=== PATIENT | female | born 1975 | race Caucasian/White ===

== ENCOUNTER → 2016-09-04 | Outpatient (CLI) | payer BC ==
--- OUTSIDE RECORDS SUMMARY | 2016-09-04 15:42 | XMS REPORT | Continuity of Care Document ---
[facility] Address Unknown Phone Unavailable Care Team Providers Care Certified Medical Assistant Name Role Phone Nivia Bowden PCP [phone] Source Comments Some departments are not documenting in the electronic medical record. If you do not see the information that you expected, contact Release of Information in the Health Information Management department at [phone] for further assistance in locating additional records[facility] Active Allergies and Adverse Reactions No Known Allergies Current Medications Prescription Sig. Disp. Refills Start End Date Status Date ETONOGESTREL/ETHINYL Insert or Apply to Active ESTRADIOL (NU[facility]ING [facility]) vaginal area. HYDROcodone/acetaminophen Take 1-2 Tabs by mouth 30 Tab 0 04/06/20 Active (NORCO; VICODIN) 5-325 mg every 4-6 hours as needed 14 tablet for Pain. Max 8 tabs/day MULTIVITAMIN PO Take by mouth. 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
[2016-09-04 16:19] LABS: ALANINE AMINOTRANSFERASE 12 U/L (0-55); ALBUMIN 4.2 G/DL (3.2-4.5); ANION GAP 10 MMOL/L (5-14); ASPARTATE AMINO TRANSFERASE 11 U/L (5-34); BILIRUBIN,TOTAL 0.4 MG/DL (0.1-1.0); BLOOD UREA NITROGEN 15 MG/DL (7-18); BUN/CREATININE RATIO 21; CALCIUM 9.3 MG/DL (8.5-10.1); CARBON DIOXIDE 23 MMOL/L (21-32); CHLORIDE 105 MMOL/L (98-107); CREATININE SERUM 0.71 MG/DL (0.60-1.30); GFR ESTIMATED > 60; GLUCOSE 86 MG/DL (70-105); POTASSIUM 3.7 MMOL/L (3.6-5.0); SODIUM 138 MMOL/L (135-145); TOTAL PROTEIN 7.4 G/DL (6.4-8.2)
[2016-09-04 16:21] LABS: BASOPHILS % (AUTO) 0 % (0-10); EOSINOPHILS # (AUTO) 0.3 10^3/uL (0.0-0.3); EOSINOPHILS % (AUTO) 3 % (0-10); LYMPHOCYTES # (AUTO) 2.5 X 10^3 (1.0-4.0); LYMPHOCYTES % (AUTO) 21 % (12-44); MEAN CORPUSCULAR HEMOGLOBIN 30 PG (25-34); MEAN CORPUSCULAR HGB CONC 34 G/DL (32-36); MEAN CORPUSCULAR VOLUME 89 FL (80-99); MEAN PLATELET VOLUME 11.3 FL (7.4-10.4); MONOCYTES # (AUTO) 0.8 X 10^3 (0.0-1.0); MONOCYTES % (AUTO) 6 % (0-12); NEUTROPHILS # (AUTO) 8.3 X 10^3 (1.8-7.8); NEUTROPHILS % (AUTO) 70 % (42-75); PLATELET COUNT 267 10^3/uL (130-400); RED BLOOD COUNT 4.84 10^6/uL (4.35-5.85); RED CELL DISTRIBUTION WIDTH 13.5 % (10.0-14.5); WHITE BLOOD COUNT 11.9 10^3/uL (4.3-11.0)
[2016-09-04 18:05] LABS: TROPONIN I < 0.30 NG/ML (<0.30)
== END ==
LOC: CARD 15:39
PROVIDERS: ATTEND Nurse Practitioner Family
DX: R07.9 Chest pain, unspecified (principal); R06.02 Shortness of breath
CPT/HCPCS: 36415; 80053; 84484; 85025; 93005

== ENCOUNTER → 2018-02-10 | Outpatient (CLI) | payer OTHER ==
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
--- NOTE | 2018-02-10 17:13 | Diagnostic Imaging Report ---
INDICATION: Right wrist pain. AP, oblique, and lateral views of the right wrist are obtained. FINDINGS: No fracture or acute bony abnormality is seen. IMPRESSION: Negative right wrist. Dictated by: Dictated on workstation # [id number]
== END ==
LOC: RAD 10:37
PROVIDERS: ATTEND Internal Medicine
DX: M79.641 Pain in right hand (principal); M25.531 Pain in right wrist
CPT/HCPCS: 73110; 73130

== ENCOUNTER → 2020-09-03 | Outpatient (CLI) | payer OTHER, BC ==
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
== END ==
LOC: RAD 14:51
PROVIDERS: ATTEND Nurse Practitioner Family
DX: M54.12 Radiculopathy, cervical region (principal)
CPT/HCPCS: 72040

== ENCOUNTER 2021-01-16 09:59 | Emergency (ER) | payer BC ==
[~2021-01-16] VITALS: Ht 160 cm; Wt 45.0 kg
[2021-01-16 10:54] LABS: BASOPHILS % (AUTO) 1 % (0-10); EOSINOPHILS % (AUTO) 0 % (0-10); HEMATOCRIT 45 % (35-52); LYMPHOCYTES # (AUTO) 1.2 10^3/uL (1.0-4.0); LYMPHOCYTES % (AUTO) 28 % (12-44); MEAN CORPUSCULAR HEMOGLOBIN 29 pg (25-34); MEAN CORPUSCULAR HGB CONC 33 g/dL (32-36); MEAN CORPUSCULAR VOLUME 88 fL (80-99); MEAN PLATELET VOLUME 11.2 fL (9.0-12.2); MONOCYTES # (AUTO) 0.4 10^3/uL (0.0-1.0); MONOCYTES % (AUTO) 10 % (0-12); NEUTROPHILS # (AUTO) 2.5 10^3/uL (1.8-7.8); NEUTROPHILS % (AUTO) 61 % (42-75); PLATELET COUNT 139 10^3/uL (130-400); WHITE BLOOD COUNT 4.1 10^3/uL (4.3-11.0)
[2021-01-16] MEDS ORDERED: ONDANSETRON 4 MG/2 ML (SDV) Z0FRAN IVP ONE (11:00)
[2021-01-16] MEDS ORDERED: LACTATED RINGERS 1,000 ML IV ONE (11:00)
[2021-01-16 11:09] LABS: ALBUMIN 4.4 GM/DL (3.2-4.5); POTASSIUM 3.5 MMOL/L (3.6-5.0)
[2021-01-16 11:10] LABS: CALCIUM 9.1 MG/DL (8.5-10.1)
[2021-01-16 11:12] LABS: TOTAL PROTEIN 8.4 GM/DL (6.4-8.2)
[2021-01-16 11:13] LABS: BILIRUBIN,TOTAL 0.5 MG/DL (0.1-1.0)
[2021-01-16 11:15] LABS: CREATININE SERUM 0.67 MG/DL (0.60-1.30)
[2021-01-16 11:23] LABS: CLARITY,URINE CLEAR; COLOR,URINE YELLOW; GLUCOSE, URINE (UA) NEGATIVE (NEGATIVE); KETONES,URINE 3+ (NEGATIVE); LEUKOCYTE ESTERASE ,URINE NEGATIVE (NEGATIVE); NITRITE,URINE NEGATIVE (NEGATIVE); PROTEIN,URINE TRACE (NEGATIVE)
[2021-01-16 11:35] LABS: BILIRUBIN,URINE 1+ (NEGATIVE)
[2021-01-16 11:36] LABS: BACTERIA,URINE FEW /HPF
[2021-01-16 12:15] VITALS: BP 93/81
[2021-01-16] MEDS ORDERED: DEXA6TAB6 PO (12:16)
[2021-01-16] MEDS ORDERED: PROM5SYR PO (12:16)
--- NOTE | 2021-01-16 12:16 | ED General ---
General Chief Complaint: Cough/Cold/Flu Symptoms Stated Complaint: COUGH;FEVER;DIARRHEA;DEHYDRATION;CANNOT EAT Nursing Triage Note: Pt ambulatory into ER with complaint of N/V/D, Body Aches, Fatigue, Headache, Loss of Smell x6 days. Pt states that she just feels exhausted and hasn't ate or drank much since last week. Source of Information: Patient Exam Limitations: No Limitations History of Present Illness Date Seen by Provider: Jan 16, 2021 Time Seen by Provider: 12:12 Initial Comments To ER with nausea vomiting diarrhea body aches headache fatigue and loss of smell for 6 days. Unvaccinated against Covid. She does not feel short of breath Timing/Duration: 6-7 Days Severity: Moderate Associated Systoms: Nausea/Vomiting Allergies and Home Medications Allergies Coded Allergies: No Allergy Information Available (Unverified , 09/21/14) Patient Home Medication List Home Medication List Reviewed: Yes Review of Systems Review of Systems Constitutional: see HPI EENTM: see HPI Respiratory: see HPI, cough Cardiovascular: no symptoms reported Genitourinary: no symptoms reported Musculoskeletal: no symptoms reported Skin: no symptoms reported Psychiatric/Neurological: No Symptoms Reported Hematologic/Lymphatic: No Symptoms Reported Past Tkbwwbc-Mlaqen-Qyvvul Hx Patient Social History Tobacco Use?: No Use of E-Cig and/or Vaping dev: No Substance use?: No Alcohol Use?: No Pt feels they are or have been: No Immunizations Up To Date Influenza Vaccine Up-to-Date: No; Not Current Physical Exam Vital Signs Vital Signs - First Documented 01/16/21 11:13 Temp 37.2 Pulse 88 Resp 16 B/P (MAP) 109/84 (92) Pulse Ox 99 O2 Delivery Room Air Capillary Refill : Less Than 3 Seconds Height, Weight, BMI Height: '" Weight: lbs. oz. kg; 17.00 BMI Method: General Appearance: No Apparent Distress, WD/WN, Thin, Other (98% SPO2 on room air without tachycardia or hypotension) HEENT: PERRL/EOMI, Normal ENT Inspection, Other (Serous otitis bilaterally) Neck: Full Range of Motion, Normal Inspection Respiratory: No Accessory Muscle Use, No Respiratory Distress Cardiovascular: Regular Rate, Rhythm, Normal Peripheral Pulses Gastrointestinal: Normal Bowel Sounds, Non Tender Extremity: Normal Capillary Refill, Normal Inspection Neurologic/Psychiatric: Alert, Oriented x3 Skin: Normal Color, Warm/Dry Progress/Results/Core Measures Suspected Sepsis SIRS Temperature: Pulse: 88 Respiratory Rate: 16 Laboratory Tests 01/16/21 10:25: White Blood Count 4.1L Blood Pressure 109 /84 Mean: 92 Laboratory Tests 01/16/21 10:25: Creatinine 0.67, Platelet Count 139, Total Bilirubin 0.5 Results/Orders Lab Results Laboratory Tests Test 01/16/21 10:25 01/16/21 10:50 01/16/21 11:13 Range/Units White Blood Count 4.1 L 4.3-11.0 10^3/uL Red Blood Count 5.12 H 3.80-5.11 10^6/uL Hemoglobin 15.0 11.5-16.0 g/dL Hematocrit 45 35-52 % Mean Corpuscular Volume 88 80-99 fL Mean Corpuscular Hemoglobin 29 25-34 pg Mean Corpuscular Hemoglobin Concent 33 32-36 g/dL Red Cell Distribution Width 12.1 10.0-14.5 % Platelet Count 139 130-400 10^3/uL Mean Platelet Volume 11.2 9.0-12.2 fL Immature Granulocyte % (Auto) 0 % Neutrophils (%) (Auto) 61 42-75 % Lymphocytes (%) (Auto) 28 12-44 % Monocytes (%) (Auto) 10 0-12 % Eosinophils (%) (Auto) 0 0-10 % Basophils (%) (Auto) 1 0-10 % Neutrophils # (Auto) 2.5 1.8-7.8 10^3/uL Lymphocytes # (Auto) 1.2 1.0-4.0 10^3/uL Monocytes # (Auto) 0.4 0.0-1.0 10^3/uL Eosinophils # (Auto) 0.0 0.0-0.3 10^3/uL Basophils # (Auto) 0.0 0.0-0.1 10^3/uL Immature Granulocyte # (Auto) 0.0 0.0-0.1 10^3/uL Sodium Level 140 135-145 MMOL/L Potassium Level 3.5 L 3.6-5.0 MMOL/L Chloride Level 100 98-107 MMOL/L Carbon Dioxide Level 21 21-32 MMOL/L Anion Gap 19 H 5-14 MMOL/L Blood Urea Nitrogen 9 7-18 MG/DL Creatinine 0.67 0.60-1.30 MG/DL Estimat Glomerular Filtration Rate 96 BUN/Creatinine Ratio 13 Glucose Level 75 70-105 MG/DL Calcium Level 9.1 8.5-10.1 MG/DL Corrected Calcium 8.8 8.5-10.1 MG/DL Total Bilirubin 0.5 0.1-1.0 MG/DL Aspartate Amino Transf (AST/SGOT) 29 5-34 U/L Alanine Aminotransferase (ALT/SGPT) 17 0-55 U/L Alkaline Phosphatase 42 40-136 U/L C-Reactive Protein High Sensitivity 0.59 H 0.00-0.50 MG/DL Total Protein 8.4 H 6.4-8.2 GM/DL Albumin 4.4 3.2-4.5 GM/DL Influenza Type A (RT-PCR) Not Detected Not Detecte Influenza Type B (RT-PCR) Not Detected Not Detecte SARS-CoV-2 RNA (RT-PCR) Detected H Not Detecte Urine Color YELLOW Urine Clarity CLEAR Urine pH 6.0 5-9 Urine Specific [place] >=1.030 1.016-1.022 Urine Protein TRACE H NEGATIVE Urine Glucose (UA) NEGATIVE NEGATIVE Urine Ketones 3+ H NEGATIVE Urine Nitrite NEGATIVE NEGATIVE Urine Bilirubin 1+ H NEGATIVE Urine Urobilinogen 0.2 < = 1.0 MG/DL Urine Leukocyte Esterase NEGATIVE NEGATIVE Urine RBC (Auto) 1+ H NEGATIVE Urine RBC 2-5 H /HPF Urine WBC 2-5 /HPF Urine Squamous Epithelial Cells 5-10 /HPF Urine Crystals NONE /LPF Urine Bacteria FEW H /HPF Urine Casts NONE /LPF Urine Mucus MODERATE H /LPF Urine Culture Indicated NO Medications Given in ED Current Medications Medications Dose Ordered Sig/Clara Route Start Time Stop Time Status Last Admin Dose Admin Lactated Ringer's 1,000 ml @ 0 mls/hr Q0M ONCE IV 01/16/21 11:00 01/16/21 11:01 DC 01/16/21 10:57 1,000 MLS/HR Ondansetron HCl 4 mg ONCE ONCE IVP 01/16/21 11:00 01/16/21 11:01 DC 01/16/21 10:57 4 MG Vital Signs/I&O 01/16/21 01/16/21 11:13 11:13 Temp 37.2 Pulse 88 Resp 16 B/P (MAP) 109/84 (92) Pulse Ox 99 O2 Delivery Room Air Room Air Capillary Refill : Less Than 3 Seconds Blood Pressure Mean: 92 Departure Communication (Admissions) She does not meet criteria for Regeneron Impression Primary Impression: COVID-19 Disposition: 01 HOME, SELF-CARE Condition: Stable Departure-Patient Inst. Decision time for Depature: 12:14 Referrals: [facility] MD (PCP/Family) Primary Care Physician Patient Instructions: COVID-19 (DC) Add. Discharge Instructions: 1. Return to ER for any concerns or shortness of breath. Medication as directed. All discharge instructions reviewed with patient and/or family. Voiced understanding. Scripts Promethazine HCl/Codeine (Prometh-Codein 6.25-10 mg/5 ml) 5 Ml Syrup 5 ML PO Q4H PRN for COUGH, #120 ML Prov: MATEO CHAPMAN APRN 01/16/21 Dexamethasone (Decadron) 6 Mg Tablet 6 MG PO DAILY, #5 TAB Prov: MATEO CHAPMAN APRN 01/16/21 MATEO CHAPMAN APRN Jan 16, 2021 12:16
== END 2021-01-16 12:15 | disposition home or self-care (01) ==
LOC: EDUNIT# 09:59 → ER 10:01
DX: U07.1 COVID-19 (principal)
CPT/HCPCS: 36415; 80053; 81000; 85025; 86141; 87636; 96374

== ENCOUNTER → 2021-01-16 | Outpatient (CLI) | payer OTHER, BC ==
[~2021-01-16] MED LIST: DEXA6TAB6 PO; PROM5SYR PO
== END ==
LOC: LABNPT 08:20
PROVIDERS: ATTEND Internal Medicine
DX: U07.1 COVID-19 (principal)
CPT/HCPCS: 87635

== ENCOUNTER → 2021-09-27 | Outpatient (CLI) | payer BC ==
[~2021-09-27] MED LIST changes: +CATHETER FLUSH 10 ML SYR IV PRN; +IOHEXOL 350 MG/ML 100 ML (OMNIPAQUE 350) VIAL IV ONE; +NS 100 ML (IVPB) BAG IV ONE
--- NOTE | 2021-09-27 17:20 | Diagnostic Imaging Report ---
INDICATION: Abdominal pain and hematuria. TECHNIQUE: Multiple contiguous axial images were obtained through the abdomen and pelvis after administration of intravenous contrast. Auto Exposure Controls were utilized during the CT exam to meet ALARA standards for radiation dose reduction. All CT scans use one or more of the following dose optimizing techniques: automated exposure control, MA and/or KvP adjustment based on patient size and exam type or iterative reconstruction. COMPARISON: Comparison made with 09/21/2014. FINDINGS: Visualized portions of the lung bases are clear except for some mild linear scarring or atelectasis in both bases. There is no pleural fluid or free intraperitoneal air. The liver shows a small low-density lesion in the right lobe posteriorly, measuring about 9 mm. This has not changed compared to the prior study and is likely a hemangioma. Liver is otherwise normal. Gallbladder appears normal. The spleen, adrenals, and pancreas appear unremarkable. There is no retroperitoneal mass or adenopathy. There is no ascites or abnormal fluid collection. Visualized bowel loops are unremarkable. There is an adnexal cyst on the right side measuring 3.4 cm. IMPRESSION: A 3.4 cm right adnexal cyst. Stable small hemangioma in the right lobe of the liver. No other significant abnormality seen. Dictated by: Dictated on workstation # [id number]
== END ==
LOC: RAD 15:38
PROVIDERS: ATTEND Family Medicine
DX: D18.09 Hemangioma of other sites (principal); N83.8 Other noninflammatory disorders of ovary, fallopian tube and broad ligament
CPT/HCPCS: 74177

== ENCOUNTER → 2022-02-22 | Outpatient (CLI) | payer BC ==
[~2022-02-22] MED LIST changes: -CATHETER FLUSH 10 ML SYR IV PRN; -IOHEXOL 350 MG/ML 100 ML (OMNIPAQUE 350) VIAL IV ONE; -NS 100 ML (IVPB) BAG IV ONE
--- NOTE | 2022-02-22 09:32 | Diagnostic Imaging Report ---
INDICATION: Chronic right hand pain 3 views of the right hand show no fracture, dislocation or other acute abnormalities. IMPRESSION: Negative right hand. No change compared to 02/10/2018. Dictated by: Dictated on workstation # [id number]
== END ==
LOC: RAD 08:56
PROVIDERS: ATTEND Internal Medicine
DX: M79.641 Pain in right hand (principal); G89.29 Other chronic pain
CPT/HCPCS: 73130

== ENCOUNTER 2022-07-26 01:05 | Emergency (ER) | payer BC ==
[~2022-07-26] VITALS: Ht 160 cm; Wt 50.0 kg
[2022-07-26] MEDS ORDERED: fentaNYL INJ 100 MCG/2 ML AMP IVP STA ×2 (01:21→02:01)
[2022-07-26] MEDS ORDERED: NS IV 1000 ML 1,000 ML IV STA (01:21)
--- NOTE | 2022-07-26 01:29 | ED Abdominal Pain ---
General Chief Complaint: Abdominal/GI Problems Stated Complaint: ABD PAIN Source of Information: Patient Exam Limitations: No Limitations History of Present Illness Date Seen by Provider: Jul 26, 2022 Time Seen by Provider: 01:15 Initial Comments Here with report of acute onset of right lower quadrant abdominal pain approximately 30 minutes prior to arrival. Patient states it woke her up out of sleep. She is currently being treated for sinus infection and was seen at urgent care yesterday and had negative COVID and influenza testing. She was seen a couple weeks ago for pelvic pain and had CT scan done in [place] and they told her she may have had a ruptured cyst and she had cyst on both ovaries. Does have history of previous bilateral tubal ligation as well as appendectomy. She has never had kidney stones. Other than some occasional pelvic pain she has never had pain like this and this is worse than she is ever had. Does note that she has had some pink-tinged discharge when wiping over the past couple of days. She states that she is not sexually active recently. She did report taking 2 Aleve at onset but that has not stopped her pain yet. Timing/Duration: 1/2 Hour Severity/Quality: Moderate Location: RLQ Radiation: No Radiation Activities at Onset: None Associated Symptoms: No Back Pain, No Fever/Chills; Nausea/Vomiting; No Shortness of Air, No Weakness Allergies and Home Medications Allergies Coded Allergies: codeine (Verified Allergy, Unknown, Vomiting, 07/26/22) Patient Home Medication List Home Medication List Reviewed: Yes Dexamethasone (Decadron) 6 Mg Tablet, 6 MG PO DAILY Prescribed by: MATEO CHAPMAN on 01/16/21 1216 Promethazine HCl/Codeine (Prometh-Codein 6.25-10 mg/5 ml) 5 Ml Syrup, 5 ML PO Q4H PRN for COUGH Prescribed by: MATEO CHAPMAN on 01/16/21 1216 Review of Systems Review of Systems Constitutional: No fever EENTM: Nose Congestion; No Throat Pain Respiratory: Denies Cough, Denies Shortness of Air Gastrointestinal: Abdominal Pain, Diarrhea, Nausea; Denies Vomiting Musculoskeletal: no symptoms reported Skin: no symptoms reported Past Xvcxthg-Fuzfug-Axjuvh Hx Patient Social History Tobacco Use?: No Alcohol Use?: Yes Past Medical History Surgeries: Yes Appendectomy, Tonsillectomy, Tubal Ligation Cardiac: No Neurological: No Family Medical History No Pertinent Family Hx Physical Exam Vital Signs Vital Signs - First Documented 07/26/22 01:14 Temp 36.3 Pulse 99 Resp 22 B/P (MAP) 134/97 (109) Pulse Ox 100 O2 Delivery Room Air Capillary Refill : Height/Weight/BMI Height: '" Weight: lbs. oz. kg; 17.00 BMI Method: General Appearance: WD/WN, mild distress Neck: full range of motion, supple Respiratory: lungs clear, normal breath sounds Cardiovascular: no murmur, tachycardia Gastrointestinal: normal bowel sounds, soft; No guarding, No rebound; tenderness (Right lower quadrant) Back: normal inspection, no CVA tenderness, no vertebral tenderness Neurologic/Psychiatric: alert, oriented x 3 Skin: normal color, warm/dry Progress/Results/Core Measures Results/Orders Lab Results Laboratory Tests Test 07/26/22 01:25 07/26/22 02:00 Range/Units White Blood Count 12.9 H 4.3-11.0 10^3/uL Red Blood Count 4.54 3.80-5.11 10^6/uL Hemoglobin 13.5 11.5-16.0 g/dL Hematocrit 40 35-52 % Mean Corpuscular Volume 89 80-99 fL Mean Corpuscular Hemoglobin 30 25-34 pg Mean Corpuscular Hemoglobin Concent 33 32-36 g/dL Red Cell Distribution Width 13.1 10.0-14.5 % Platelet Count 311 130-400 10^3/uL Mean Platelet Volume 10.8 9.0-12.2 fL Immature Granulocyte % (Auto) 0 % Neutrophils (%) (Auto) 84 H 42-75 % Lymphocytes (%) (Auto) 13 12-44 % Monocytes (%) (Auto) 3 0-12 % Eosinophils (%) (Auto) 0 0-10 % Basophils (%) (Auto) 0 0-10 % Neutrophils # (Auto) 10.8 H 1.8-7.8 10^3/uL Lymphocytes # (Auto) 1.6 1.0-4.0 10^3/uL Monocytes # (Auto) 0.4 0.0-1.0 10^3/uL Eosinophils # (Auto) 0.0 0.0-0.3 10^3/uL Basophils # (Auto) 0.0 0.0-0.1 10^3/uL Immature Granulocyte # (Auto) 0.0 0.0-0.1 10^3/uL Sodium Level 136 135-145 MMOL/L Potassium Level 3.8 3.6-5.0 MMOL/L Chloride Level 105 98-107 MMOL/L Carbon Dioxide Level 20 L 21-32 MMOL/L Anion Gap 11 5-14 MMOL/L Blood Urea Nitrogen 7 7-18 MG/DL Creatinine 0.71 0.60-1.30 MG/DL Estimat Glomerular Filtration Rate 106 BUN/Creatinine Ratio 10 Glucose Level 150 H 70-105 MG/DL Calcium Level 9.4 8.5-10.1 MG/DL Corrected Calcium 9.3 8.5-10.1 MG/DL Total Bilirubin 0.3 0.1-1.0 MG/DL Aspartate Amino Transf (AST/SGOT) 15 5-34 U/L Alanine Aminotransferase (ALT/SGPT) 14 0-55 U/L Alkaline Phosphatase 44 40-136 U/L C-Reactive Protein High Sensitivity 0.21 0.00-0.50 MG/DL Total Protein 7.6 6.4-8.2 GM/DL Albumin 4.1 3.2-4.5 GM/DL Urine Color YELLOW Urine Clarity CLEAR Urine pH 8.5 5-9 Urine Specific [place] 1.020 1.016-1.022 Urine Protein NEGATIVE NEGATIVE Urine Glucose (UA) NEGATIVE NEGATIVE Urine Ketones 2+ H NEGATIVE Urine Nitrite NEGATIVE NEGATIVE Urine Bilirubin NEGATIVE NEGATIVE Urine Urobilinogen 0.2 < = 1.0 MG/DL Urine Leukocyte Esterase NEGATIVE NEGATIVE Urine RBC (Auto) NEGATIVE NEGATIVE Urine RBC NONE /HPF Urine WBC NONE /HPF Urine Squamous Epithelial Cells 2-5 /HPF Urine Crystals NONE /LPF Urine Bacteria TRACE /HPF Urine Casts NONE /LPF Urine Mucus NEGATIVE /LPF Urine Culture Indicated NO My Orders Orders - LILI UMAÑA MD Cbc With Automated Diff (07/26/22 01:21) Comprehensive Metabolic Panel (07/26/22 01:21) Hs C Reactive Protein (07/26/22 01:21) Ua Culture If Indicated (07/26/22 01:21) Ondansetron Injection (Zofran Injectio (07/26/22 01:30) Ns Iv 1000 Ml (Sodium Chloride 0.9%) (07/26/22 01:21) Ed Iv/Invasive Line Start (07/26/22 01:21) Fentanyl Inj (Sublimaze Injection) (07/26/22 01:21) Fentanyl Inj (Sublimaze Injection) (07/26/22 02:01) Ct Abdomen/Pelvis W (07/26/22 02:25) Iohexol Injection (Omnipaque 350 Mg/Ml 1 (07/26/22 03:15) Sodium Chloride Flush (Catheter Flush Sy (07/26/22 03:15) Ns (Ivpb) (Sodium Chloride 0.9% Ivpb Bag (07/26/22 03:15) Medications Given in ED Current Medications Medications Dose Ordered Sig/Clara Route Start Time Stop Time Status Last Admin Dose Admin Iohexol 100 ml ONCE ONCE IV 07/26/22 03:15 07/26/22 03:16 DC 07/26/22 03:06 60 ML Ondansetron HCl 4 mg ONCE ONCE IVP 07/26/22 01:30 07/26/22 01:31 DC 07/26/22 01:35 4 MG Sodium Chloride 10 ml NEEDED PRN IV 07/26/22 03:15 07/26/22 03:07 10 ML Sodium Chloride 100 ml ONCE ONCE IV 07/26/22 03:15 07/26/22 03:16 DC 07/26/22 03:06 80 ML Vital Signs/I&O 07/26/22 01:14 Temp 36.3 Pulse 99 Resp 22 B/P (MAP) 134/97 (109) Pulse Ox 100 O2 Delivery Room Air Progress Progress Note : Progress Note Seen and evaluated. Patient has had previous appendectomy as well as tubal ligation. Given the severity of her pain, we will initiate IV and check CBC, CMP, UA and CRP. Fentanyl 50 mcg IV and normal saline 1 L bolus ordered. Anticipate CT abdomen pelvis but will await UA to determine contrast as kidney stone would be on the differential. Monitor patient. Differential includes ovarian cyst, kidney or ureteral stone, UTI, bowel inflammation, other intra-abdominal pathology 0200: I have repeated dose of fentanyl. Patient was finally able to give urine and we are awaiting those results. 0225: CBC shows white count of 12.9 with hemoglobin of 13.5 with slight neutrophilia. Chemistry shows normal electrolytes with slightly elevated glucose at 150. Serum creatinine normal. LFTs are normal. CRP is also noted to be normal. UA did show 2+ ketones but otherwise not significant for urinary tract infection and no significant amount of blood. I have ordered CT abdomen pelvis with contrast given her persistence of pain. Kidney stone less likely due to no blood in the urine. Monitor patient. 0310: CT shows bilateral ovarian cyst on my interpretation without significant amount of free fluid in the abdomen. See obvious signs of significant bowel obstruction on my interpretation. Pending radiology read. 0330: Reviewed stat rad report. See below. Discussed with patient. Her pain is essentially resolved right now she feels comfortable going home. In further discussion with her, she is an current evaluation with her scallop binder after the ER visit 2 weeks ago at the outside hospital. They did do ultrasound of the ovaries at that time and have repeat ultrasound scheduled in 1 month. She will keep that appointment and call her scallop binder again. I did discuss with her about follow-up with general surgery for colonoscopy and she will make that appointment. I will give her a couple of the local physicians for that for information to call and she will call one of the MRI of her choosing. Discharged home with return precautions. Patient verbalized understanding instructions and agreement with plan. Diagnostic Imaging Diagonstic Imaging: CT Plain Films/CT/US/NM/MRI: abdomen, pelvis Comments There are some dilated loops of small bowel containing air and fluid. Some of these demonstrate wall thickening. This may be related to an ileus. Cannot exclude a nonspecific enteritis. There are possible bilateral adnexal cyst. There is some free fluid noted in the pelvis. 1 cm lesion is again noted in the right lobe of the liver which previously was felt to represent a hemangioma. Per stat rad report. Reviewed: Reviewed [place] Study, Reviewed by Me Departure Impression Primary Impression: Abdominal pain Qualified Codes: R10.30 - Lower abdominal pain, unspecified Disposition: HOME, SELF-CARE Condition: Improved Departure-Patient Inst. Decision time for Depature: 03:35 Referrals: BRANDON DELEON BRETT D DO TAYLOR, JOHN D MD (PCP/Family) Primary Care Physician Add. Discharge Instructions: All discharge instructions reviewed with patient and/or family. Voiced understanding. Follow-up with one of the surgeons listed or of your choosing for further evaluation including possible colonoscopy/upper endoscopy (scope) as needed. Continue home medications as previously prescribed. You may take Tylenol/acetaminophen 650 mg every 6-8 hours as needed for pain. You may take Aleve 1 or 2 tablets twice daily as needed for pain. Clear a light diet for the next 1 to 2 days and then advance as tolerated. You should initiate [id number] probiotics while you are taking the Augmentin as this will help reduce GI distress. Return for worse pain, fever, vomiting, weakness, breathing problems or other concerns as needed. LILI UMAÑA MD Jul 26, 2022 01:29
[2022-07-26] MEDS ORDERED: ONDANSETRON 4 MG/2 ML (SDV) Z0FRAN IVP ONE (01:30)
[2022-07-26 01:31] LABS: BASOPHILS % (AUTO) 0 % (0-10); EOSINOPHILS % (AUTO) 0 % (0-10); HEMATOCRIT 40 % (35-52); HEMOGLOBIN 13.5 g/dL (11.5-16.0); LYMPHOCYTES # (AUTO) 1.6 10^3/uL (1.0-4.0); LYMPHOCYTES % (AUTO) 13 % (12-44); MEAN CORPUSCULAR HEMOGLOBIN 30 pg (25-34); MEAN CORPUSCULAR HGB CONC 33 g/dL (32-36); MEAN CORPUSCULAR VOLUME 89 fL (80-99); MEAN PLATELET VOLUME 10.8 fL (9.0-12.2); MONOCYTES # (AUTO) 0.4 10^3/uL (0.0-1.0); MONOCYTES % (AUTO) 3 % (0-12); NEUTROPHILS # (AUTO) 10.8 10^3/uL (1.8-7.8); NEUTROPHILS % (AUTO) 84 % (42-75); PLATELET COUNT 311 10^3/uL (130-400); WHITE BLOOD COUNT 12.9 10^3/uL (4.3-11.0)
[2022-07-26 01:59] LABS: ALBUMIN 4.1 GM/DL (3.2-4.5); BILIRUBIN,TOTAL 0.3 MG/DL (0.1-1.0); CALCIUM 9.4 MG/DL (8.5-10.1); CREATININE SERUM 0.71 MG/DL (0.60-1.30); POTASSIUM 3.8 MMOL/L (3.6-5.0); TOTAL PROTEIN 7.6 GM/DL (6.4-8.2)
[2022-07-26 02:12] LABS: BILIRUBIN,URINE NEGATIVE (NEGATIVE); CLARITY,URINE CLEAR; COLOR,URINE YELLOW; GLUCOSE, URINE (UA) NEGATIVE (NEGATIVE); KETONES,URINE 2+ (NEGATIVE); LEUKOCYTE ESTERASE ,URINE NEGATIVE (NEGATIVE); NITRITE,URINE NEGATIVE (NEGATIVE); PH,URINE 8.5 (5-9); PROTEIN,URINE NEGATIVE (NEGATIVE)
[2022-07-26 02:16] LABS: BACTERIA,URINE TRACE /HPF
[2022-07-26] MEDS ORDERED: CATHETER FLUSH 10 ML SYR IV PRN (03:15)
[2022-07-26] MEDS ORDERED: IOHEXOL 350 MG/ML 100 ML (OMNIPAQUE 350) VIAL IV ONE (03:15)
[2022-07-26] MEDS ORDERED: NS 100 ML (IVPB) BAG IV ONE (03:15)
[2022-07-26 03:45] VITALS: BP 119/62
--- NOTE | 2022-07-26 06:51 | Diagnostic Imaging Report ---
CLINICAL INDICATION: Patient with right lower quadrant pain, nausea for 15 minutes prior to arrival in the Emergency Room. Patient's history of appendectomy and umbilical hernia repair and fallopian tubes removed. EXAM: Axial CT scan of the abdomen and pelvis performed with 60 mL of Omnipaque 350 IV contrast. Sagittal and coronal reformatted images are created. Auto Exposure Controls were utilized during the CT exam to meet ALARA standards for radiation dose reduction. COMPARISON: CT scan of abdomen and pelvis with contrast dated 09/27/2021. FINDINGS: Again seen mild curvilinear patchy opacities involving the posterior aspects of both lung bases which may represent atelectasis or scarring. Bones show no significant abnormality. Bilateral breast implants are seen. Again seen roughly 2 mm low-density area involving the right lobe of liver which demonstrates complete fill in on the delayed phase on the prior study most consistent with hemangioma. The liver is otherwise unremarkable. Spleen, pancreas and gallbladder are unremarkable. Adrenal glands are unremarkable. Both kidneys are unremarkable with no hydronephrosis stone, or mass seen. Uterus and adnexal structures show no significant abnormality. Appendectomy changes are noted. There is wall thickening involving the gastric body distally which may be related to decompressed appearance to contraction. There are multiple loops of small bowel with air-fluid levels in the region of the pelvis which demonstrate no significant wall thickening. The most distended loop of small bowel air-fluid level measures 2.2 cm in AP dimension. There is no intra-abdominal free air or free fluid. There is no definite evidence of intestinal obstruction. Extra abdominal and extrapelvic soft tissue structures are unremarkable. Probably cystic changes involving the adnexal regions. Otherwise uterus and adnexal structures are unremarkable. IMPRESSION: 1: There are multiple loops of small bowel with air-fluid levels in the lower abdomen and pelvis. There is no wall thickening. These findings may be related to enteritis. Localized ileus cannot be completely excluded. 2: The remainder of this exam shows no other concern for acute abdominal or pelvic process. 3.: Again seen hemangioma within the right lobe of liver. I agree with [facility] report. Dictated by: Dictated on workstation # [id number]
== END 2022-07-26 03:45 | disposition home or self-care (01) ==
LOC: EDUNIT# 01:05 → ER 01:07
DX: R10.31 Right lower quadrant pain (principal); N83.202 Unspecified ovarian cyst, left side; N83.201 Unspecified ovarian cyst, right side; R73.9 Hyperglycemia, unspecified; Z90.49 Acquired absence of other specified parts of digestive tract; Z88.5 Allergy status to narcotic agent; Z28.310 Unvaccinated for COVID-19
CPT/HCPCS: 36415; 74177; 80053; 81000; 85025; 86141